=== PATIENT | female | born 1990 ===

== ENCOUNTER 2019-04-20 18:44 | Emergency (ER) | payer SELFPAY ==
[~2019-04-20] VITALS: Ht 162.6 cm; Wt 136.4 kg
[2019-04-20 18:56] VITALS: Ht 162.6 cm; Wt 136.4 kg
[2019-04-20] MEDS ORDERED: TIROSINT75 MCG PO (18:57)
[2019-04-20] MEDS ORDERED: TALWIN NX1 TAB PO (20:28)
[2019-04-20] MEDS ORDERED: VOLTAREN75 MG PO (20:28)
[2019-04-20 20:51] VITALS: BP 132/65
== END 2019-04-20 20:40 | disposition home or self-care (01) ==
LOC: D.ER 18:44
DX: K04.7 Periapical abscess without sinus (principal); K08.89 Other specified disorders of teeth and supporting structures; J45.909 Unspecified asthma, uncomplicated; E07.9 Disorder of thyroid, unspecified; Z72.0 Tobacco use